=== PATIENT | male | born 1990 | race African-American/Black ===

== ENCOUNTER 2016-12-13 18:13 | Emergency (ER) | payer OTHER ==
[2016-12-13 18:17] VITALS: BP 123/73; PULSE 82; RESP 15; TEMP 97.6; O2SAT 98
--- NOTE | 2016-12-13 19:38 | PD ---
HPI Chief Complaint: Anxiety Time Seen by Provider: 19:28 Travel History International Travel<30 days: No Contact w/Intl Traveler<30days: No Traveled to known affect area: No History of Present Illness HPI This is a 26-year-old male who presents for evaluation. He reports that at 6 PM this evening while walking down some stairs he developed a tightness across his chest. This lasted for approximately 30 minutes and resolved. He reports that he felt quite anxious as well. He says that he has been coping with a lot of stress lately. He says that there has been 3 deaths in the family over the past month. He endorses anxiety. He admits to feeling depressed in regards to the family situation. Denies any suicidal or homicidal ideation. Denies any drug or alcohol use. Denies any tobacco use. He is currently feeling much better and is asymptomatic. Denies recent travel, calf swelling, recent surgery. No other complaints at this time. PFSH Past Medical History Cardiovascular Problems: Yes (MURMUR) Respiratory: Yes (ASTHMA) Social History Alcohol Use: No Tobacco Use: No Substance Use: No Allergies-Medications (Allergen,Severity, Reaction): Coded Allergies: No Known Allergies (Unverified , 12/13/16) Review of Systems Except as stated in HPI: all other systems reviewed are Neg Physical Exam Narrative GENERAL: Well-developed well-nourished male in no acute distress resting comfortably in hospital bed. SKIN: Warm and dry. HEAD: Atraumatic. Normocephalic. EYES: Pupils equal and round. No scleral icterus. No injection or drainage. ENT: No nasal bleeding or discharge. Mucous membranes pink and moist. NECK: Trachea midline. No JVD. CARDIOVASCULAR: Regular rate and rhythm. No murmur appreciated. RESPIRATORY: No accessory muscle use. Clear to auscultation. Breath sounds equal bilaterally. GASTROINTESTINAL: Abdomen soft, non-tender, nondistended. MUSCULOSKELETAL: No obvious deformities. No edema. NEUROLOGICAL: Awake and alert. No obvious cranial nerve deficits. Motor grossly within normal limits. Normal speech. PSYCHIATRIC: Appropriate mood and affect; insight and judgment normal. Data Data Last Documented VS Vital Signs Date Time Temp Pulse Resp B/P Pulse Ox O2 Delivery O2 Flow Rate FiO2 12/13/16 18:17 97.6 82 15 123/73 98 Orders Electrocardiogram (12/13/16 19:35) Chest, Single Ap (12/13/16 19:35) Alprazolam (Xanax) (12/13/16 19:45) MDM Medical Decision Making Medical Screen Exam Complete: Yes Emergency Medical Condition: Yes Medical Record Reviewed: Yes Differential Diagnosis Anxiety, costochondritis, pericarditis, myocarditis, pneumothorax, hemothorax, pulmonary embolism, acute coronary syndrome Narrative Course This is a 26-year-old male who presents for evaluation of a 30 minute episode of chest pressure and anxiety prior to arrival. On initial examination his symptoms have resolved. He has been grieving in regards to 3 family members to have in the past month. He has been feeling quite stressed. This patient likely benefit from counseling as an outpatient and I discussed this with the patient who agrees. Chest x-ray and EKG are performed revealing no acute abnormalities. The patient was given a dose of Xanax. He is stable for discharge. Diagnosis Primary Impression: Anxiety Referrals: Psychiatrist Additional Instructions: Follow-up with a psychiatrist. Return for any emergent medical conditions. Med/Other Pt SpecificInfo: No Change to Meds Disposition: 01 DISCHARGE HOME Condition: Stable Sam Oscar Dec 13, 2016 19:38
[2016-12-13] MEDS ORDERED: ALPRAZolam 1 MG TAB PO ONE (19:45)
--- NOTE | 2016-12-13 20:06 | RADRPT ---
EXAM DATE/TIME: 12/13/2016 19:49 [facility] COMPARISON: No previous studies available for comparison. INDICATIONS : Chest pain. MEDICAL HISTORY : None. SURGICAL HISTORY : None. ENCOUNTER: Initial ACUITY: 2 days PAIN SCORE: 7/10 LOCATION: Left upper chest FINDINGS: A single view of the chest demonstrates the lungs to be symmetrically aerated without evidence of mas s, infiltrate or effusion. The cardiomediastinal contours are unremarkable. Osseous structures are intact. CONCLUSION: No evidence of acute cardiopulmonary disease. Khanh Rodriguez MD on December 13, 2016 at 20:04 Board Certified Radiologist. This report was verified electronically.
--- NOTE | 2016-12-14 22:48 | EKG ---
Date Performed: 12/13/2016 Time Performed: 19:44:03 PTAGE: 26 years EKG: Sinus rhythm WITH SINUS ARRHYTHMIA NORMAL ECG NO PREVIOUS TRACING DOCTOR: Gemma Haynes Interpretating Date/Time 12/14/2016 22:44:44
== END 2016-12-13 20:39 | disposition home or self-care (01) ==
LOC: NEPB 18:13
DX: F41.9 Anxiety disorder, unspecified (principal); R01.1 Cardiac murmur, unspecified
CPT/HCPCS: 71010; 93005

== ENCOUNTER 2017-03-16 19:43 | Emergency (ER) | payer OTHER ==
[~2017-03-16] VITALS: Ht 172.7 cm; Wt 88.6 kg
[2017-03-16 19:44] VITALS: BP 121/68; PULSE 80; RESP 16; TEMP 98; O2SAT 97
[2017-03-16] MEDS ORDERED: AUGM875T PO (21:53)
--- NOTE | 2017-03-16 21:54 | PD ---
HPI Chief Complaint: General Weakness Time Seen by Provider: 21:50 Travel History International Travel<30 days: No Contact w/Intl Traveler<30days: No Traveled to known affect area: No History of Present Illness HPI Healthy 26-year-old male here with complaint of sore throat, subjective fevers and chills, cough and generalized weakness. Patient has been ill for 2 days. States that he is having nasal congestion and lots of postnasal drip, associated sore throat. Complains of bodyaches, fevers and chills. Notes a dry nonproductive cough, mostly the nasal drip that he is coughing. Patient states that one time he snorted the phlegm from the back of the nasopharynx and he had a scant amount of blood in this. He denies any genuine hemoptysis. PFSH Past Medical History Cardiovascular Problems: Yes (MURMUR) Respiratory: Yes (ASTHMA) Social History Alcohol Use: No Tobacco Use: Yes Substance Use: Yes (marijuana) Allergies-Medications (Allergen,Severity, Reaction): Coded Allergies: No Known Allergies (Unverified , 03/16/17) Reported Meds & Prescriptions Reported Meds & Active Scripts Active Augmentin (Amoxicillin-Clavulanate) 875-125 mg Tab 875 Mg PO BID 7 Days not for use in CrCl <30 ml/min. Review of Systems Except as stated in HPI: all other systems reviewed are Neg Physical Exam Narrative GENERAL: Well-appearing male in no acute distress SKIN: Focused skin assessment warm/dry. HEAD: Atraumatic. Normocephalic. EYES: Pupils equal and round. No scleral icterus. No injection or drainage. ENT: Nasal mucosal injection without discharge Mucous membranes pink and moist. Clear bilaterally. Posterior pharynx with slight palatal petechiae, erythema but no exudate. NECK: Supple with shoddy anterior cervical lymphadenopathy CARDIOVASCULAR: Regular rate and rhythm. RESPIRATORY: No accessory muscle use. Clear to auscultation. Breath sounds equal bilaterally. MUSCULOSKELETAL: Normal gait NEUROLOGICAL: Awake and alert. Normal speech. PSYCHIATRIC: Appropriate mood and affect; insight and judgment normal. Data Data Last Documented VS Vital Signs Date Time Temp Pulse Resp B/P Pulse Ox O2 Delivery O2 Flow Rate FiO2 03/16/17 19:44 98.0 80 16 121/68 97 Room Air MDM Medical Decision Making Medical Screen Exam Complete: Yes Emergency Medical Condition: Yes Medical Record Reviewed: Yes Differential Diagnosis 26-year-old male here with flulike symptoms 2 days. Differential includes sinusitis, otitis, influenza, pharyngitis, viral syndrome. Narrative Course Based on his nasal congestion, postnasal drip, pharyngeal erythema with palatal petechiae patient will be treated with Augmentin for possible bacterial sinusitis versus pharyngitis and discharged home. Diagnosis Primary Impression: Pharyngitis Qualified Code: J02.9 - Pharyngitis, unspecified etiology Referrals: [facility] as needed Primary Care Physician as needed Additional Instructions: Antibiotics as prescribed. Med/Other Pt SpecificInfo: Prescription(s) given Scripts Amoxicillin-Clavulanate (Augmentin)875-125 mg [id number] Mg PO BID 7 Days Ref 0 not for use in CrCl <30 ml/min. Prov:Mimi Ramirez MD 03/16/17 Disposition: 01 DISCHARGE HOME Condition: Stable Mimi Ramirez MD Mar 16, 2017 21:54
== END 2017-03-16 22:57 | disposition home or self-care (01) ==
LOC: NEPD 19:43
DX: J02.9 Acute pharyngitis, unspecified (principal)
CPT/HCPCS: 99284

== ENCOUNTER 2018-04-15 01:46 | Emergency (ER) | payer OTHER ==
[~2018-04-15 01:46] MED LIST: AUGM875T PO
[2018-04-15 01:50] VITALS: BP 124/61; PULSE 91; RESP 17; TEMP 98.4; O2SAT 98
[2018-04-15] MEDS ORDERED: lortab PO (02:08)
--- NOTE | 2018-04-15 02:22 | PD ---
HPI Chief Complaint: Injury Time Seen by Provider: 02:10 Travel History International Travel<30 days: No Contact w/Intl Traveler<30days: No Traveled to known affect area: No History of Present Illness HPI 27-year-old black male presents emergency department accompanied by family members requesting to have a splint reapplied after getting it wet at the beach tonight. The patient was seen yesterday at [facility] when he had a palate bebo injury to his right foot. He states that x-ray showed a positive fracture. He is placed in a splint. He went out drinking this evening and was swelling at the beach in the splint. He has attempted to put a plastic bag on his foot but unfortunately his foot got soaked and wet. Symptoms are mild. Worsened by swimming at the beach. No alleviating factors. PFSH Past Medical History Narrative Medical Right foot fracture Asthma: Yes Cardiovascular Problems: Yes (MURMUR) Respiratory: Yes (ASTHMA) Past Surgical History Surgical History: No Previous Surgery Social History Alcohol Use: Yes (occasionally) Tobacco Use: Yes Substance Use: No Allergies-Medications (Allergen,Severity, Reaction): Coded Allergies: No Known Allergies (Unverified Adverse Reaction, Unknown, 04/15/18) Reported Meds & Prescriptions Reported Meds & Active Scripts Active Reported [lortab] 5 PO Review of Systems General / Constitutional: No: Fever Eyes: No: Visual changes HENT: No: Headaches Cardiovascular: No: Chest Pain or Discomfort Respiratory: No: Shortness of Breath Gastrointestinal: No: Abdominal Pain Genitourinary: No: Dysuria Musculoskeletal: Positive: Arthralgias, Limited ROM, Edema, Pain Skin: No Rash Neurologic: No: Weakness Psychiatric: No: Depression Endocrine: No: Polydipsia Hematologic/Lymphatic: No: Easy Bruising Physical Exam Narrative GENERAL: This is a well-nourished, well-developed patient, in no apparent distress. SKIN: No rashes, ecchymoses or lesions. Warm and dry. HEAD: Atraumatic. Normocephalic. EYES: PERRL, EOMI, no discharge or injection. No scleral icterus. EARS: Clear NOSE: Nasal turbinates appear normal. THROAT: Mucosa pink and moist. Airway patent. NECK: Trachea midline. supple, moves head freely. LUNGS: Clear to auscultation. CV: Regular in rhythm. ABDOMEN: Soft nontender. EXT: No clubbing cyanosis or edema. Patient has a posterior splint on his right lower extremity. The splint is soaking wet. It is contaminated with sand. Data Data Last Documented VS Vital Signs Date Time Temp Pulse Resp B/P (MAP) Pulse Ox O2 Delivery O2 Flow Rate FiO2 04/15/18 01:50 98.4 91 17 124/61 (82) 98 Orders Orders Splint Or Brace Apply/Monitor (04/15/18 02:17) Ed Discharge Order (04/15/18 02:17) [facility] Medical Decision Making Medical Screen Exam Complete: Yes Emergency Medical Condition: Yes Medical Record Reviewed: Yes Differential Diagnosis Differential diagnosis: Fracture, sprain, strain, splint application Narrative Course The patient's splint has been removed. The skin is intact. A new posterior splint is applied. Patient is strongly advised to keep the splint on and clean and dry and not to visit the beach or drink alcohol. Diagnosis Primary Impression: Right foot fracture subsequent evaluation Patient Instructions: General Instructions Additional Instructions: Rest. Elevation. Keep clean and dry. Ice for next few days. Continue home medications. Follow-up with podiatry or orthopedics as recommended. Follow-up with workman's comp. Call Workmen's Comp. in the morning to ensure proper follow-up. Disposition: 01 DISCHARGE HOME Condition: Stable Richard Zuñiga April 15, 2018 02:22
== END 2018-04-15 03:49 | disposition home or self-care (01) ==
LOC: NEPD 01:46
DX: S92.909D Unspecified fracture of unspecified foot, subsequent encounter for fracture with routine healing (principal); X58.XXXD Exposure to other specified factors, subsequent encounter
CPT/HCPCS: 29515

== ENCOUNTER 2018-04-18 04:13 | Emergency (ER) | payer OTHER ==
[~2018-04-18] VITALS: Ht 172.7 cm; Wt 76.0 kg
[~2018-04-18 04:13] MED LIST changes: -AUGM875T PO; +lortab PO
[2018-04-18 04:15] VITALS: BP 121/56; PULSE 86; RESP 14; TEMP 98.1; O2SAT 97
--- NOTE | 2018-04-18 04:38 | PD ---
HPI Chief Complaint: Injury Time Seen by Provider: 04:29 Travel History International Travel<30 days: No Contact w/Intl Traveler<30days: No Traveled to known affect area: No History of Present Illness HPI 27-year-old black male presents emergency department requesting his splint to be reapplied. This is a patient who allegedly had a fracture right foot on the . He came into the ER on the to have his splint changed because he went swimming in the beach and got the splint wet. The patient now states that he caught the splint on the sidewalk causing the edge to peel up so he took the splint off. He is requesting once again to have another splint applied. He has an appointment today at 11:00 to see the orthopedist.. Symptoms are mild. No alleviating symptoms. Exacerbated by patient's actions. History Past Medical Histgory Medical History: Denies Significant Hx Tetanus Vaccination: < 5 Years Past Surgical History Surgical History: No Previous Surgery Social History Alcohol Use: Yes (occasionally) Tobacco Use: Yes (1/2PPD) Allergies-Medications (Allergen,Severity, Reaction): Coded Allergies: No Known Allergies (Unverified Adverse Reaction, Unknown, 04/15/18) Reported Meds & Prescriptions Reported Meds & Active Scripts Active Reported [lortab] 5 PO Review of Systems General / Constitutional: No: Fever Eyes: No: Visual changes HENT: No: Headaches Cardiovascular: No: Chest Pain or Discomfort Respiratory: No: Shortness of Breath Gastrointestinal: No: Abdominal Pain Genitourinary: No: Dysuria Musculoskeletal: Positive: Pain Skin: No Rash Neurologic: No: Weakness Psychiatric: No: Depression Endocrine: No: Polydipsia Hematologic/Lymphatic: No: Easy Bruising Physical Exam Narrative GENERAL: This is a well-nourished, well-developed patient, in no apparent distress. SKIN: No rashes, ecchymoses or lesions. Warm and dry. HEAD: Atraumatic. Normocephalic. EYES: PERRL, EOMI, no discharge or injection. No scleral icterus. EARS: Clear NOSE: Nasal turbinates appear normal. THROAT: Mucosa pink and moist. Airway patent. NECK: Trachea midline. supple, moves head freely. LUNGS: Clear to auscultation. CV: Regular in rhythm. ABDOMEN: Soft nontender. EXT: No clubbing cyanosis or edema. Patient has his right foot wrapped with Colt bandages. These are left in place. Data Data Last Documented VS Vital Signs Date Time Temp Pulse Resp B/P (MAP) Pulse Ox O2 Delivery O2 Flow Rate FiO2 04/18/18 04:15 98.1 86 14 121/56 (77) 97 MDM Medical Screen Exam Complete: Yes Emergency Medical Condition: No Differential Diagnosis MDM: High Differential diagnoses: Fracture, sprain, strain, dislocation, contusion, neurovascular injury Narrative Course A medical screening exam was performed: At the time of evaluation the presenting medical condition was determined not to be of an emergent nature. The patient was given the option of receiving additional care, but declined. Patient was given options for additional community resources from which to obtain care. The Patient Has Been advised to seek medical attention for their presenting complaint. The patient has been advised to return to the ER at any time if an emergent condition develops. Primary Impression: Encounter for medical screening examination Condition: Stable Richard Zuñiga April 18, 2018 04:38
== END 2018-04-18 04:51 | disposition left against medical advice (07) ==
LOC: NEPD 04:13
DX: S92.901D Unspecified fracture of right foot, subsequent encounter for fracture with routine healing (principal); X58.XXXD Exposure to other specified factors, subsequent encounter
CPT/HCPCS: 99281